=== PATIENT | female | born 1995 ===

== ENCOUNTER 2022-06-13 16:51 | Emergency (ER) | payer OTHER, SELFPAY ==
[2022-06-13 16:57] VITALS: BP 114/71; PULSE 79; RESP 18; TEMP 36; O2SAT 100; BMI 26.6
--- NOTE | 2022-06-13 16:59 | ECG_ITS ---
Test Reason : dizziness Blood Pressure : / mmHG Vent. Rate : 077 BPM Atrial Rate : 077 BPM P-R Int : 146 ms QRS Dur : 094 ms QT Int : 364 ms P-R-T Axes : 049 071 061 degrees QTc Int : 411 ms Normal sinus rhythm with sinus arrhythmia Incomplete right bundle branch block Borderline ECG No previous ECGs available Referred By: Generic ED Physician Electronically Signed By:DANYELL ACUÑA
[2022-06-13 17:23] LABS: MANUAL DIFF FLAG NO
[2022-06-13 17:25] LABS: Basophils Absolute Auto 0.1 X10*3/uL (0.0-0.2); Basophils Percent Auto 1.1 % (0-2); Eosinophils Absolute Auto 0.4 X10*3/uL (0.0-0.4); Eosinophils Percent Auto 4.6 % (0-4); Hematocrit 36.9 % (37.0-47.0); Hemoglobin 12.5 g/dl (12.0-16.0); Imm Gran Abs Auto 0.02 X10*3/uL (0.00-0.03); Imm Gran Pct Auto 0.2 % (0.0-0.4); Lymphocytes Absolute Auto 2.6 X10*3/uL (1.2-4.9); Lymphocytes Percent Auto 28.1 % (20-40); Mean Corpuscular HGB Conc 33.9 g/dl (31.0-35.0); Mean Corpuscular Hemoglobin 31.3 pg (27.0-33.0); Mean Corpuscular Volume 92.3 fL (80.0-98.0); Mean Platelet Volume 10.5 fL (9.4-12.3); Monocytes Absolute Auto 0.8 X10*3/uL (0.1-1.2); Monocytes Percent Auto 8.4 % (2-11); Neutrophils Absolute Auto 5.4 x10*3/uL (2.0-8.3); Neutrophils Percent Auto 57.6 % (45-73); Platelet Count 251 X10*3/uL (160-400); Red Cell Distribution Width 11.7 % (11.0-16.0); White Blood Count 9.4 X10*3/uL (4.8-10.8)
[2022-06-13 17:43] LABS: Alanine Aminotransferase 12 U/L (0-31); Albumin Level 4.4 g/dL (3.5-5.0); Alkaline Phosphatase 56 U/L (39-117); Anion Gap 15 (12-20); Aspartate Amino Transferase 19 U/L (5-31); Bilirubin Total 0.5 mg/dL (0.0-1.0); Blood Urea Nitrogen 19 mg/dL (9-16); Calcium 9.2 mg/dL (8.4-10.2); Carbon Dioxide 24 mmol/L (22-29); Chloride 103 mmol/L (96-108); Creatinine Clr Calc Pharmacy 96.4; Estimated Glomerular Filt Rate > 60; Glucose Random 94 mg/dL (60-115); Potassium 3.6 mmol/L (3.3-5.1); Sodium 138 mmol/L (135-145); Total Protein 7.9 g/dL (6.5-8.0)
[2022-06-13 17:50] LABS: Troponin-I High Sensitivity < 3.5 ng/L (<3.5-17.0)
--- NOTE | 2022-06-13 21:30 | PC.NURSE ---
called x 3 to triage for reassessment. No answer. Presumed LWT
== END 2022-06-13 21:37 | disposition left against medical advice (07) ==
LOC: HO.ED 21:32
PROVIDERS: Emergency Provider Emergency Medicine
DX: R07.9 Chest pain, unspecified (principal); R42 Dizziness and giddiness; H53.8 Other visual disturbances
CPT/HCPCS: 36415; 80053; 84484; 85025; 93005; 99283

== ENCOUNTER 2024-12-01 19:45 | Emergency (ER) | payer OTHER, SELFPAY ==
--- NOTE | ~2024-12-01 | XR_ITS ---
CLINICAL HISTORY: CHEST PAIN AND SOB 1 view chest x-ray Comparison: None Findings: No consolidation or effusion. Normal size heart. No acute fracture. IMPRESSION: 1. No acute findings. This document has been electronically signed by: Doron Petersen MD on 12/01/2024 21:40:21
[2024-12-01 20:00] VITALS: BP 111/67; PULSE 84; RESP 18; TEMP 36.7; O2SAT 94; BMI 20.5
--- NOTE | 2024-12-01 20:07 | ECG_ITS ---
Test Reason : CHEST PAIN Blood Pressure : */* mmHG Vent. Rate : 72 BPM Atrial Rate : 72 BPM P-R Int : 168 ms QRS Dur : 94 ms QT Int : 380 ms P-R-T Axes : 56 65 49 degrees QTcB Int : 416 ms Normal sinus rhythm Incomplete right bundle branch block Borderline ECG When compared with ECG of 13-Jun-2022 17:09, No significant change was found Referred By: Sameer Marmolejo Electronically Signed By: LOPEZ DEMPSEY
--- NOTE | 2024-12-01 20:09 | ED_ITS ---
HPI - General Adult General Chief complaint: General Medical Stated complaint: found skin/tissue & red ervin in throat/ hurts Time Seen by Provider: 12/02/24 01:21 Source: patient Limitations: no limitations History of Present Illness ED Provider: Aubree Cunha PA-C HPI narrative: 29-year-old female who is otherwise healthy, with a history of tobacco abuse presents with multiple complaints. Patient states for over a year she has felt as if she can not take a deep breath. Over the past several months, she states she wakes every morning with a dry throat. Patient states she constantly feels as if she has to clear her throat. In addition, patient has had ongoing chest pain that is intermittent. Denies fever, recent cough or cold symptoms, nausea vomiting diarrhea or GERD symptoms. Patient has a primary care provider, however has not made an appointment to address her chronic issues. Related Data Previous Rx's ?Medication ?Instructions ?Recorded nicotine (polacrilex) 4 mg gum 4 mg buccal Q2H PRN nicotine 12/02/24 (Nicorette) cravings #40 ea Allergies Allergy/AdvReac Type Severity Reaction Status Date / Time No Known Allergies Allergy Verified 12/01/24 20:07 Review of Systems 2 Review of Systems: Yes all other systems are reviewed and are negative Constitutional: Constitutional: Denies fatigue and Denies fever(s) ENT: Reports sore throat Cardiovascular: Cardiovascular: Reports chest pain and Reports dyspnea Respiratory: Respiratory: Denies cough and Reports dyspnea Gastrointestinal: Gastrointestinal: Denies abdominal pain, Denies dyspepsia, Denies diarrhea, Denies nausea and Denies vomiting Endocrine: Endocrine: Denies fatigue PMFSH Past Medical History Attestation statement: The following information was validated with the patient. Social History Social History Smoked in Last 30 Days: Yes Use of substances other than those prescribed or required for medical reasons: No Advance Directives: No Patient : No Physical Exam ED Vital Signs: Vital Signs - 24 hr 12/02/24 02:09 12/02/24 02:09 Temperature 98.1 F 98.5 F Pulse Rate 84 68 Respiratory Rate 18 18 Blood Pressure 111/67 99/71 Pulse Oximetry 94 100 Oxygen Delivery Method Room Air Room Air BMI result Body Mass Index 20.5 Const Other: Alert well-appearing Orientation/consciousness: patient oriented x3 HENMT Other: Oropharynx is clear mildly erythematous without exudate, uvula midline no sublingual fluctuance, no swelling inferior to the jawline no trismus no drooling Resp Effort & Inspection: normal respiratory effort Cardio Other: Normal peripheral perfusion Skin Other: Warm dry no rash Neuro General: patient oriented x3, gait normal, no focal motor deficits and CN's II- XI intact bilaterally Psych Other: Cooperative Course Course Course Narrative: RME: 29-year-old female presents to ED for chest pain for 5 months with shortness of breath for 3 months. Patient's primary complaint is scratchy throat and pain on swallowing. Patient was concerned due to family history of cancers. All exam negative for signs of tonsil swelling or exudates. Negative for signs of peritonsillar abscess. EKG labs SARs strep ordered. Medical Decision Making Medical Decision Making [facility] Narrative: 29-year-old female who is otherwise healthy, with a history of tobacco abuse presents with multiple complaints. Patient states for over a year she has felt as if she can not take a deep breath. Over the past several months, she states she wakes every morning with a dry throat. Patient states she constantly feels as if she has to clear her throat. In addition, patient has had ongoing chest pain that is intermittent. Denies fever, recent cough or cold symptoms, nausea vomiting diarrhea or GERD symptoms. Patient has a primary care provider, however has not made an appointment to address her chronic issues. Problem: Tobacco abuse History: Per patient I have considered the following differential diagnoses: Asthma/COPD exacerbation, viral syndrome, pneumonia, ACS, anxiety, viral pharyngitis, strep pharyngitis, RPA, ELECTROMECH[employer]ICAL INSPECTOR Plan: Patient here with all chronic complaints. In regard to her chest pain, this is very atypical, her only risk factor for coronary artery disease is her tobacco use, screening labs including a cardiac enzymes EKG and chest x-ray were obtained. In regard to her shortness of breath this is highly subjective, she was not have a formal diagnosis of asthma or COPD yet, she has not had fevers, no recent cough or cold symptoms, and again she has had symptoms for a year. I advised the patient that she needs to follow up with primary care for pulmonary function testing. Regard to her sore throat, again another chronic issue. Her exam is unremarkable, there were no findings that are consistent with RPA or ELECTROMECHANICAL INSPECTOR, viral panel and strep screen were obtained from triage. The patient is assessment tonight was completely negative. We will be sending her with information about smoking cessation per her request. I have independently reviewed the following tests: Labs: No leukocytosis, not anemic, no electrolyte abnormality, viral panel negative, trop negative EKG: Normal sinus rhythm, rate of 72, incomplete right bundle, no ischemic changes no ectopy QTC 416 Chest x-ray:indings: No consolidation or effusion. Normal size heart. No acute fracture. IMPRESSION: 1. No acute findings. Lab Data 12/01/24 20:49 12/01/24 20:49 Labs: Lab Results 12/01/24 Range/Units 20:49 WBC 6.3 (4.8-10.8) X10*3/uL RBC 3.94 L (4.20-5.50) X10*6/uL Hgb 12.5 (12.0-16.0) g/dl Hct 36.0 L (37.0-47.0) % MCV 91.4 (80.0-98.0) fL MCH 31.7 (27.0-33.0) pg MCHC 34.7 (31.0-35.0) g/dl RDW 12.0 (11.0-16.0) % Plt Count 227 (160-400) X10*3/uL MPV 10.6 (9.4-12.3) fL Immature Gran % (Auto) 0.2 (0.0-0.4) % Neut % (Auto) 53.2 (45-73) % Lymph % (Auto) 31.4 (20-40) % [place] % (Auto) 9.2 (2-11) % Eos % (Auto) 5.1 H (0-4) % Baso % (Auto) 0.9 (0-2) % Lymph # (Auto) 2.0 (1.2-4.9) X10*3/uL [place] # (Auto) 0.6 (0.1-1.2) X10*3/uL Eos # (Auto) 0.3 (0.0-0.4) X10*3/uL Baso # (Auto) 0.1 (0.0-0.2) X10*3/uL Abs Immat Gran (auto) 0.01 (0.00-0.03) X10*3/uL Absolute Neuts (auto) 3.4 (2.0-8.3) x10*3/uL Absolute Nucleated RBC 0.000 (0.0-0.012) X10*3/uL Nucleated RBC % (auto) 0.0 (0.0-0.2) /100WBC Sodium 142 (135-145) mmol/L Potassium 3.4 (3.3-5.1) mmol/L Chloride 110 H (96-108) mmol/L Carbon Dioxide 25 (22-29) mmol/L Anion Gap 10 L (12-20) BUN 11 (9-16) mg/dL Creatinine 0.71 (0.5-1.4) mg/dL Estim Creat Clear Calc 104.0 Estimated GFR > 60 Random Glucose 79 (60-115) mg/dL Calcium 8.6 D (8.4-10.2) mg/dL Total Bilirubin 0.5 (0.0-1.0) mg/dL AST 25 (5-31) U/L ALT 33 H (0-31) U/L Alkaline Phosphatase 57 (39-117) U/L Troponin I High Sens < 2.7 (<3.5-17.0) ng/L B-Natriuretic Peptide < 10 (<100) pg/mL Total Protein 7.6 (6.5-8.0) g/dL Albumin 4.0 (3.5-5.0) g/dL Influenza Type A (PCR) NEGATIVE (Negative) Influenza Type B (PCR) NEGATIVE (Negative) RSV RNA Qual (PCR) NEGATIVE (Negative) SARS-CoV-2 RNA (RT-PCR) NEGATIVE (Negative) S. pyogenes GrpA AMADO Negative (Negative) Discharge Plan Discharge Clinical Impression: Chest pain, Chronic sore throat Patient Disposition: Home, Self-Care Instructions: How to Stop Smoking (ED), Noncardiac Chest Pain (ED) Additional Instructions: In regard to your chest discomfort, this is not related to your heart. Screening labs including a cardiac enzymes were obtained an everything is normal. There were no concerning changes on your EKG in the chest x-ray is clear. In regard to your throat pain and dryness, a viral panel and a strep screen were obtained, the panel was negative. I do believe your smoking maybe contributing to your sore/dry throat. You also need to follow up with your primary care provider for pulmonary function testing, to determine if you have asthma and/or COPD. Use the Nicorette gum to try and help yourself quit smoking. Prescriptions: New nicotine (polacrilex) [Nicorette] 4 mg gum 4 mg buccal Q2H PRN (Reason: nicotine cravings) Qty: 40 0RF Interventions: ED Discharge Assessment Last Done: 12/02/24 02:09 Discharge Date/Time: 12/02/24 02:12 Print Language: Yoruba
[2024-12-01 20:55] LABS: Basophils Absolute Auto 0.1 X10*3/uL (0.0-0.2); Basophils Percent Auto 0.9 % (0-2); Eosinophils Absolute Auto 0.3 X10*3/uL (0.0-0.4); Eosinophils Percent Auto 5.1 % (0-4); Hemoglobin 12.5 g/dl (12.0-16.0); Imm Gran Abs Auto 0.01 X10*3/uL (0.00-0.03); Imm Gran Pct Auto 0.2 % (0.0-0.4); Lymphocytes Percent Auto 31.4 % (20-40); MANUAL DIFF FLAG NO; Mean Corpuscular HGB Conc 34.7 g/dl (31.0-35.0); Mean Corpuscular Hemoglobin 31.7 pg (27.0-33.0); Mean Corpuscular Volume 91.4 fL (80.0-98.0); Mean Platelet Volume 10.6 fL (9.4-12.3); Monocytes Absolute Auto 0.6 X10*3/uL (0.1-1.2); Monocytes Percent Auto 9.2 % (2-11); Neutrophils Absolute Auto 3.4 x10*3/uL (2.0-8.3); Neutrophils Percent Auto 53.2 % (45-73); Platelet Count 227 X10*3/uL (160-400); Red Blood Count 3.94 X10*6/uL (4.20-5.50); White Blood Count 6.3 X10*3/uL (4.8-10.8)
[2024-12-01 21:06] LABS: IDNOW Serial# 58CA691E; Strep A Nucleic Acid Negative (Negative)
[2024-12-01 21:11] LABS: Alanine Aminotransferase 33 U/L (0-31); Alkaline Phosphatase 57 U/L (39-117); Anion Gap 10 (12-20); Aspartate Amino Transferase 25 U/L (5-31); Bilirubin Total 0.5 mg/dL (0.0-1.0); Blood Urea Nitrogen 11 mg/dL (9-16); Calcium 8.6 mg/dL (8.4-10.2); Carbon Dioxide 25 mmol/L (22-29); Chloride 110 mmol/L (96-108); Estimated Glomerular Filt Rate > 60; Glucose Random 79 mg/dL (60-115); Potassium 3.4 mmol/L (3.3-5.1); Sodium 142 mmol/L (135-145); Total Protein 7.6 g/dL (6.5-8.0)
[2024-12-01 21:14] LABS: B Type Natriuretic Peptide < 10 pg/mL (<100)
[2024-12-01 21:19] LABS: Troponin-I High Sensitivity < 2.7 ng/L (<3.5-17.0)
[2024-12-01 21:33] LABS: Influenza A PCR NEGATIVE (Negative); Influenza B PCR NEGATIVE (Negative); Resp Syncy Virus RNA Qual PCR NEGATIVE (Negative); SARS COV2 PCR INHOUSE NEGATIVE (Negative)
[2024-12-02 02:09] VITALS: BP 111/67; BP 99/71; PULSE 68; PULSE 84; RESP 18; TEMP 36.7; TEMP 36.9; O2SAT 100; O2SAT 94
--- NOTE | 2024-12-02 02:11 | PC.NURSE ---
Extensive education provided to patient in regards to f/u with PCP and quitting smoking pt verbalized understanding.
== END 2024-12-02 02:12 | disposition home or self-care (01) ==
PROVIDERS: Physician Assistant; Emergency Provider Internal Medicine
DX: R07.89 Other chest pain (principal); J02.9 Acute pharyngitis, unspecified; R06.02 Shortness of breath; Z87.891 Personal history of nicotine dependence; Z03.818 Encounter for observation for suspected exposure to other biological agents ruled out
CPT/HCPCS: 0241U; 71045; 80053; 83880; 84484; 85025; 87651; 93005; 99283; 99284

== ENCOUNTER → 2024-12-01 20:07 | Outpatient (BNV) | payer OTHER, SELFPAY | PROVIDERS: Emergency Provider Internal Medicine; Visit Provider Internal Medicine | DX: I45.10 Unspecified right bundle-branch block (principal) | CPT/HCPCS: 93010 ==

== ENCOUNTER → 2024-12-01 20:10 | Outpatient (BNV) | payer OTHER, SELFPAY | PROVIDERS: Visit Provider Student in an Organized Health Care Education/Training Program | DX: R07.9 Chest pain, unspecified (principal); R06.02 Shortness of breath | CPT/HCPCS: 71045 ==

== ENCOUNTER 2025-06-28 20:21 | Emergency (ER) | payer OTHER, SELFPAY ==
[2025-06-28 20:38] VITALS: BP 138/83; PULSE 85; RESP 14; TEMP 36.3; O2SAT 100; BMI 20.4
--- NOTE | 2025-06-28 20:40 | ED_ITS ---
HPI - General Adult General Chief complaint: General Medical Stated complaint: fever/post op Related Data Previous Rx's ?Medication ?Instructions ?Recorded nicotine (polacrilex) 4 mg gum 4 mg buccal Q2H PRN chely otine 12/02/24 (Nicorette) cravings #40 ea Allergies Allergy/AdvReac Type Severity Reaction Status Date / Time No Known Allergies Allergy Verified 06/28/25 20:44 PMFSH Social History Social History Advance Directives: No Advance Directives Information Provided: No Do you have a plan to hurt others: No Plan Physical Exam ED Vital Signs: BMI result Body Mass Index 20.4 Course Course Course Narrative: Medical screening exam performed. Please refer to detailed history, exam, evaluation, and management by primary provider. Liposuction on June 19. Previously draining but stopped now. Now with increased swelling. Subjective fevers. Not visualized at triage; patient with abdominal binder. JS Discharge Plan Discharge Clinical Impression: Encounter for postoperative wound check Patient Disposition: Left W/O Completing Treatment Prescriptions: No Action nicotine (polacrilex) [Nicorette] 4 mg gum 4 mg buccal Q2H PRN (Reason: nicotine cravings) Qty: 40 0RF Discharge Date/Time: 06/28/25 21:47
--- NOTE | 2025-06-28 21:15 | MHC.EDTECH ---
PT refused blood work. Pt said he will come back tomorrow. roadway technician aware
== END 2025-06-28 21:47 | disposition left against medical advice (07) ==
PROVIDERS: Emergency Provider Emergency Medicine
DX: R50.9 Fever, unspecified (principal)
CPT/HCPCS: 99281